=== PATIENT | female | born 2000 | race Caucasian/White ===

== ENCOUNTER 2019-11-07 06:17 | Emergency (ER) | payer MEDICAID ==
[~2019-11-07] VITALS: Ht 162.6 cm; Wt 51.0 kg
[2019-11-07] MEDS ORDERED: LEVETIRACETAM 500MG PREMIX 100 ML IV ONE (07:00)
[2019-11-07 07:22] LABS: BASOPHILS % 0.5 % (0.0-2.0); EOSINOPHILS % 1.8 % (0.0-5.0); HEMATOCRIT. 38.3 % (36.0-48.0); LYMPHOCYTES % 13.8 % (20.0-50.0); MEAN CORPUSCULAR HEMOGLOBIN 30.8 pg (28.0-32.0); MEAN CORPUSCULAR VOLUME 90.6 fL (81.0-99.0); MEAN PLATELET VOLUME 7.7 fl (7.4-10.4); MONOCYTES % 8.1 % (2.0-8.0); NEUTROPHILS % 75.8 % (40.0-76.0); PLATELET 234 x1000/uL (130-400); RED BLOOD CELL COUNT 4.22 mill/uL (4.2-5.4); RED CELL DISTRIBUTION WIDTH 14.8 % (11.6-14.6)
[2019-11-07 07:28] LABS: CHLORIDE 110 mEq/L (98-107)
[2019-11-07 07:32] LABS: HCG SCREEN NEGATIVE
[2019-11-07 08:17] VITALS: BP 107/71
== END 2019-11-07 08:17 | disposition home or self-care (01) ==
LOC: ER 06:17
DX: R56.9 Unspecified convulsions (principal); F84.0 Autistic disorder
CPT/HCPCS: 36415; 80053; 84703; 85025; 96365; 99284; J1953

== ENCOUNTER 2020-03-13 08:21 | Emergency (ER) | payer MEDICAID ==
[~2020-03-13] VITALS: Ht 152.4 cm; Wt 47.0 kg
[2020-03-13] MEDS ORDERED: LORAZEPAM 2MG/ML CPJ IM STA (09:38)
[2020-03-13 11:58] LABS: BASOPHILS % 0.3 % (0.0-2.0); EOSINOPHILS % 0.2 % (0.0-5.0); HEMATOCRIT. 41.9 % (36.0-48.0); HEMOGLOBIN. 13.9 g/dL (12.0-16.0); MEAN CORPUSCULAR HEMOGLOBIN 31.3 pg (28.0-32.0); MEAN CORPUSCULAR VOLUME 94.3 fL (81.0-99.0); MEAN PLATELET VOLUME 7.5 fl (7.4-10.4); MONOCYTES % 6.2 % (2.0-8.0); NEUTROPHILS % 83.3 % (40.0-76.0); PLATELET 253 x1000/uL (130-400); RED BLOOD CELL COUNT 4.44 mill/uL (4.2-5.4); RED CELL DISTRIBUTION WIDTH 14.9 % (11.6-14.6)
[2020-03-13 12:09] LABS: CLARITY URINE CLEAR (CLEAR); COLOR URINE YELLOW (YELLOW); KETONES URINE NEGATIVE (NEGATIVE); LEUKOCYTE ESTERASE URINE NEGATIVE (NEGATIVE); NITRITE URINE NEGATIVE (NEGATIVE); OCCULT BLOOD URINE TRACE (NEGATIVE); PROTEIN URINE NEGATIVE (NEGATIVE); SPECIFIC GRAVITY URINE 1.013 (1.005-1.030); UROBILINOGEN URINE 0.2 E.U./dL (0.2-1.0)
[2020-03-13 12:14] LABS: CHLORIDE 110 mEq/L (98-107)
[2020-03-13 12:24] LABS: ETHANOL BLOOD < 10 mg/dL
[2020-03-13 12:26] LABS: *AMPHETAMINES SCREEN URINE NEGATIVE (NEGATIVE); *BARBITURATES SCREEN URINE NEGATIVE (NEGATIVE); *BENZODIAZEPINES SCREEN URINE NEGATIVE (NEGATIVE)
[2020-03-13 12:27] LABS: *COCAINE SCREEN URINE NEGATIVE (NEGATIVE); CANNABINOID URINE SCREEN NEGATIVE (NEGATIVE); METHADONE URINE SCREEN NEGATIVE (NEGATIVE); OPIATES URINE SCREEN NEGATIVE (NEGATIVE); PHENCYCLIDINE URINE SCREEN NEGATIVE (NEGATIVE)
[2020-03-13 12:37] VITALS: BP 106/62
[2020-03-13] MEDS ORDERED: PHENYTOIN 100 MG/4 ML UDC NG ONE (12:45)
[2020-03-13] MEDS ORDERED: PHENYTOIN SODIUM EXTENDED 100MG CAPSULE PO SCH (13:00)
== END 2020-03-13 13:12 | disposition home or self-care (01) ==
LOC: ER 08:21
DX: R56.9 Unspecified convulsions (principal); R45.1 Restlessness and agitation
CPT/HCPCS: 36415; 80053; 80185; 80305; 80320; 81003; 85025; 96372; 99283; J2060; Z7610; G0480

== ENCOUNTER 2020-08-27 10:51 | Emergency (ER) | payer MEDICAID ==
[~2020-08-27] VITALS: Ht 160 cm; Wt 50.0 kg
[2020-08-27] MEDS ORDERED: LEVETIRACETAM 1000MG PREMIX 100 ML IV ONE (11:15)
[2020-08-27] MEDS ORDERED: LORAZEPAM 2MG/ML CPJ IM ONE (11:15)
[2020-08-27 12:09] LABS: BASOPHILS % 0.3 % (0.0-2.0); EOSINOPHILS % 0.5 % (0.0-5.0); HEMATOCRIT. 35.4 % (36.0-48.0); HEMOGLOBIN. 11.7 g/dL (12.0-16.0); LYMPHOCYTES % 20.3 % (20.0-50.0); MEAN CORPUSCULAR VOLUME 90.9 fL (81.0-99.0); MEAN PLATELET VOLUME 7.1 fl (7.4-10.4); MONOCYTES % 7.3 % (2.0-8.0); NEUTROPHILS % 71.6 % (40.0-76.0); PLATELET 231 x1000/uL (130-400); RED BLOOD CELL COUNT 3.89 mill/uL (4.2-5.4); RED CELL DISTRIBUTION WIDTH 15.8 % (11.6-14.6)
[2020-08-27 12:18] LABS: CHLORIDE 112 mEq/L (98-107)
[2020-08-27 12:29] LABS: CLARITY URINE CLEAR (CLEAR); COLOR URINE YELLOW (YELLOW); KETONES URINE TRACE (NEGATIVE); LEUKOCYTE ESTERASE URINE NEGATIVE (NEGATIVE); NITRITE URINE NEGATIVE (NEGATIVE); OCCULT BLOOD URINE 1+ (NEGATIVE); PROTEIN URINE NEGATIVE (NEGATIVE); SPECIFIC GRAVITY URINE 1.019 (1.005-1.030); UROBILINOGEN URINE 0.2 E.U./dL (0.2-1.0)
[2020-08-27] MEDS ORDERED: SODIUM CHLORIDE 0.9% 500 ML IV ONE (12:30)
[2020-08-27] MEDS ORDERED: ALBUTEROL (0.083%) 2.5MG/3ML NEB HHN STA (13:17)
[2020-08-27 14:40] VITALS: BP 113/71
== END 2020-08-27 14:43 | disposition home or self-care (01) ==
LOC: ER 10:51
DX: R56.9 Unspecified convulsions (principal); E87.5 Hyperkalemia; F84.0 Autistic disorder; R62.50 Unspecified lack of expected normal physiological development in childhood
CPT/HCPCS: 36415; 80053; 81003; 85025; 93005; 94640; 96365; 96372; 99284; J1953; J2060; J7030; J7040; Z7610